=== PATIENT | male | born 1955 | race Caucasian/White ===

== ENCOUNTER 2016-09-10 15:53 | Emergency (ER) | payer BC ==
[~2016-09-10] VITALS: Wt 80.0 kg
[~2016-09-10 15:53] MED LIST: ALLO300T2 PO; ATEN-51 PO; BUPR-75 PO; HYDR-3498 PO; IBUP400T22 PO; LISI20TA11 PO; SITA1TAB7 PO
[2016-09-10] MEDS ORDERED: CYCL-319 PO (16:31)
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
== END 2016-09-10 16:49 | disposition home or self-care (01) ==
LOC: FTE 15:53
DX: S39.92XA Unspecified injury of lower back, initial encounter (principal); E11.9 Type 2 diabetes mellitus without complications; I10 Essential (primary) hypertension; V47.5XXA Car driver injured in collision with fixed or stationary object in traffic accident, initial encounter; Z85.51 Personal history of malignant neoplasm of bladder; Z87.891 Personal history of nicotine dependence
CPT/HCPCS: 99283